=== PATIENT | female | born 1965 | race Caucasian/White ===

== ENCOUNTER 2018-05-30 14:22 | Emergency (ER) | payer OTHER ==
[~2018-05-30] VITALS: Ht 152.4 cm; Wt 56.8 kg
[2018-05-30] MEDS ORDERED: IBUPROFEN 800 MG TABLET PO ONE (15:00)
[2018-05-30 17:00] VITALS: BP 145/72
== END 2018-05-30 17:05 | disposition home or self-care (01) ==
LOC: EMS 14:23
DX: S39.012A Strain of muscle, fascia and tendon of lower back, initial encounter (principal); X58.XXXA Exposure to other specified factors, initial encounter; Y93.89 Activity, other specified; Y92.89 Other specified places as the place of occurrence of the external cause; Y99.8 Other external cause status
CPT/HCPCS: 72100